=== PATIENT | male | born 1990 | race Caucasian/White ===

== ENCOUNTER 2020-12-02 06:05 | Emergency (ER) | payer OTHER, BC ==
[2020-12-02] MEDS ORDERED: Acetaminophen/HYDROcodone 325-5 MG Tab PO ONE (06:45)
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
== END 2020-12-02 07:55 | disposition home or self-care (01) ==
LOC: CC.ED 06:05
DX: S01.511A Laceration without foreign body of lip, initial encounter (principal); S40.211A Abrasion of right shoulder, initial encounter; S50.811A Abrasion of right forearm, initial encounter; Z88.0 Allergy status to penicillin; Z72.0 Tobacco use; V53.5XXA Driver of pick-up truck or van injured in collision with car, pick-up truck or van in traffic accident, initial encounter; Y93.A2 Activity, calisthenics; Y92.410 Unspecified street and highway as the place of occurrence of the external cause
CPT/HCPCS: 71046; 73090-RT; 73130-LT; 73610-RT; 99284-25; A9270-GY